=== PATIENT | male | born 1935 | race Caucasian/White ===

== ENCOUNTER → 2017-03-01 | Outpatient (CLI) | payer MEDICARE, OTHER | END | disposition home or self-care (01) | DX: R42 Dizziness and giddiness (principal); H34.8132 Central retinal vein occlusion, bilateral, stable; I70.90 Unspecified atherosclerosis ==

== ENCOUNTER → 2017-04-27 | Outpatient (CLI) | payer MEDICARE, OTHER | END | disposition home or self-care (01) | LOC: RESC 04-19 12:08 | DX: G47.10 Hypersomnia, unspecified (principal); J84.10 Pulmonary fibrosis, unspecified; J43.2 Centrilobular emphysema; R06.00 Dyspnea, unspecified ==